=== PATIENT | male | born 1950 | race Caucasian/White ===

== ENCOUNTER 2017-12-21 11:08 | Outpatient (CLI) | payer OTHER ==
[~2017-12-21] VITALS: Ht 165.1 cm; Wt 75.0 kg
[~2017-12-21 11:08] MED LIST: AMOX125S17 PO; BENA1TAB10 PO; BENA1TAB9 PO; DIGO125T10 PO; ESOM20CA PO; FURO-92 PO; FURO-93 PO; HYDR-757 PO; KRIL1CAP9 PO; LINE600T37 PO; LISI-466 PO; LISI1TAB3 PO; LISI5TAB7 PO; MORP20SO PO; TRAM50TA2 PO; [UNRECOGNIZED DRUG - CODE]
[2018-01-11 18:08] LABS: ALANINE AMINOTRANSFERASE 78 U/L (12-78); ANION GAP 1 mmol/L (5-15); CALCIUM 10.1 mg/dL (8.5-10.1); CHLORIDE 107 mmol/L (98-107); MD NO; MEAN CORPUSCULAR HEMOGLOBIN 34.5 pg (27.5-34.5); MEAN CORPUSCULAR HGB CONC 36.2 g/dL (33.2-36.2); MEAN PLATELET VOLUME 10.4 fL (7.4-10.4); PLATELET COUNT 400 x10^3/uL (130-400); RED BLOOD COUNT 5.82 x10^6/uL (4.38-5.82); RED CELL DISTRIBUTION WIDTH 14.8 % (9.4-14.8)
[2018-01-11 18:09] LABS: ALKALINE PHOSPHATASE 117 U/L (45-117); TOTAL PROTEIN 8.2 g/dL (6.4-8.2)
[2018-01-11 20:40] LABS: THYROID STIMULATING HORMONE 1.057 mIU/L (0.358-3.740)
[2018-01-25] MEDS ORDERED: EPINEPHRINE 2 MG in SODIUM CHLORIDE 0.9% 250 ML IV SCH (16:00)
[2018-01-25] MEDS ORDERED: EPINEPHRINE 2 MG in SODIUM CHLORIDE 0.9% 248 ML IV PRN (16:00)
[2018-01-25] MEDS ORDERED: EPINEPHRINE 2 MG in SODIUM CHLORIDE 0.9% 250 ML IV PRN (16:30)
== END 2018-07-30 13:45 | disposition home or self-care (01) ==
LOC: RAD 11:08
PROVIDERS: ATTEND Internal Medicine
DX: Z02.9 Encounter for administrative examinations, unspecified (principal)

== ENCOUNTER 2018-12-17 14:44 | Inpatient (IN) | payer MEDICARE ==
[2018-12-17] MEDS ORDERED: IBUP-11 PO (15:20)
== END 2018-12-17 15:43 | disposition home or self-care (01) | DRG 951 ==
LOC: 3WST 14:44
PROVIDERS: ADMIT Hospitalist; ATTEND Hospitalist
DX: Z02.9 Encounter for administrative examinations, unspecified (principal)
CPT/HCPCS: G0378

== ENCOUNTER 2021-03-10 08:32 | Inpatient (IN) | payer MEDICARE ==
[~2021-03-10 08:32] MED LIST changes: +HYDR-2214 PO; +IBUP-11 PO; +LINE600T12 PO; -LINE600T37 PO; +LISI1TAB23 PO; -LISI1TAB3 PO
== END 2021-03-10 08:38 | disposition home or self-care (01) | DRG 951 ==
LOC: 2NE 08:32
DX: Z02.9 Encounter for administrative examinations, unspecified (principal)
CPT/HCPCS: G0378

== ENCOUNTER 2021-03-10 12:42 | Inpatient (IN) | payer MEDICARE | END 2021-03-10 12:52 | disposition home or self-care (01) | DRG 951 | LOC: 2NE 12:42 | DX: Z02.9 Encounter for administrative examinations, unspecified (principal) | CPT/HCPCS: G0378 ==